=== PATIENT | female | born 1955 | race Caucasian/White ===

== ENCOUNTER 2024-04-28 22:02 | Emergency (ER) | payer OTHER, MEDICARE, SELFPAY ==
[2024-04-28 22:02] VITALS: BMI 27.6
[2024-04-28 22:08] VITALS: BP 163/102
--- NOTE | 2024-04-28 23:01 | ED.GENMED ---
History of Present Illness
<Kirk Jones MD, Resident - Last Filed: 04/28/24 23:34>
General
Chief Complaint: Allergic Reaction
Source: patient and family
Time Seen by Provider: 04/28/24 22:30
Travel History
Have you traveled to any high risk areas for coronavirus over the past 14 days?: No
Have you had any contact with someone who has COVID-19?: No
Do you have any symptoms of coronavirus? Fever > 100 degrees, chills, cough, shortness of breath, sore throat, loss of taste or smell, muscle aches, or headache?: No
History of Present Illness
History of Present Illness:
Madonna Reinoso, 69-year-old female, was stung by something while gardening this afternoon. Noted a bump at site of the sting a few minutes later with itching. Subsequently noted swelling and itching across her face, ears and neck. Her voice became
slightly raspy. No difficulty swallowing or breathing. No gastrointestinal or respiratory symptoms. Her symptoms remained stable since they came on. She has not taken anything for it. She has experienced something similar to this in the past when
she responded to Medrol-Dosepak and loratadine.
Past History
<Kirk Jones MD, Resident - Last Filed: 04/28/24 23:34>
Past History
ED Past Medical History: None
ED Past Surgical History: Other (hysterectomy)
Social History
Tobacco: Smoker
Alcohol: Occasional
Drug: None
Review of Systems
<Kirk Jones MD, Resident - Last Filed: 04/28/24 23:34>
Review of Systems
Allergies reviewed?: Yes
All Other Systems: ROS reviewed and negative except as documented in HPI and ROS
Skin: Reports itching and rash
Phy Exam
<Kirk Jones MD, Resident - Last Filed: 04/28/24 23:34>
General Physical Exam
General Presentation: well appearing and no apparent distress
General Skin: warm and dry
General Habitus: normal
General Mental: alert
General Hydration: appears well hydrated
ENT Exam
ENT Exam: EOMI, pharynx normal, neck supple and normocephalic
Eye Exam
Eye Exam: PERRL, cornea clear and conjunctiva normal
Cardiovascular Exam
Cardiovascular Exam: regular rate/rhythm, no edema, no murmur and normal peripheral pulses
Pulmonary Exam
Pulmonary Exam: lungs clear, no respiratory distress, no rales, no crackles, no rhonchi, no stridor, no wheezing and no cough
Gastrointestinal Exam
Gastrointestinal Exam: normal bowel sounds, non tender, soft, no organomegaly, no pulsatile mass and non distended
Neurological Exam
Neurological Exam: alert, oriented x3, no motor deficits and speech normal
Musculoskeletal Exam
Musculoskeletal Exam: full ROM and no edema
Skin Exam
Skin Exam: warm/dry, no petechia and other (mild erythema and mild edema over the face, ear and scalp)
Psychiatric Exam
Psychiatric Exam: normal mood/affect
Course
<Kirk Jones MD, Resident - Last Filed: 04/28/24 23:34>
Orders/Labs/Results
Orders:
Orders
04/28/24 22:54
Famotidine [Pepcid] 20 mg PO NOW STA
Prednisone [Deltasone] 50 mg PO NOW STA
04/28/24 23:08
Loratadine [Claritin] 10 mg PO NOW STA
Vital Signs
Initial and Last Documented VS:
Initial Vital Signs
Temp Pulse Resp BP Pulse Ox
98.2 F 84 18 163/102 97
04/28/24 22:08 04/28/24 22:08 04/28/24 22:08 04/28/24 22:08 04/28/24 22:08
Last Documented Vital Signs
Temp Pulse Resp BP Pulse Ox
98.2 F 84 18 163/102 98
04/28/24 22:08 04/28/24 22:08 04/28/24 22:08 04/28/24 22:08 04/28/24 22:50
<Becky Lizarraga DO - Last Filed: 04/28/24 23:37>
Orders/Labs/Results
Orders:
Orders
04/28/24 22:54
Famotidine [Pepcid] 20 mg PO NOW STA
Prednisone [Deltasone] 50 mg PO NOW STA
04/28/24 23:08
Loratadine [Claritin] 10 mg PO NOW STA
Vital Signs
Initial and Last Documented VS:
Initial Vital Signs
Temp Pulse Resp BP Pulse Ox
98.2 F 84 18 163/102 97
04/28/24 22:08 04/28/24 22:08 04/28/24 22:08 04/28/24 22:08 04/28/24 22:08
Last Documented Vital Signs
Temp Pulse Resp BP Pulse Ox
98.2 F 84 18 163/102 98
04/28/24 22:08 04/28/24 22:08 04/28/24 22:08 04/28/24 22:08 04/28/24 22:50
<Kirk Jones MD, Resident - Last Filed: 04/28/24 23:34>
MDM/Problems Addressed
MDM/Problems Addressed:
The patient is hemodynamically stable. No concerning signs of anaphylaxis. Patient refuses IV treatment. Will give oral medications and send some to pharmacy.
<Kirk Jones MD, Resident - Last Filed: 04/28/24 23:34>
*Critical Care Note
Total Time (30-74mins, 75-104mins- exclusive of procedures): Not Applicable
ED Attending Note
<Kirk Jones MD, Resident - Last Filed: 04/28/24 23:34>
-
Portions of this chart may have been created with voice recognition software.� Occasional wrong word or��sound alike� substitutions may have occurred due to the inherent limitations of voice recognition software.
<Becky Lizarraga DO - Last Filed: 04/28/24 23:37>
ED Attending Note
Patient seen and examined by attending physician: Yes
I performed a history and physical exam of patient and discussed management with resident, I reviewed resident's note and agree with documented findings and plan of care.: Yes
ED Attending Note:
69-year-old woman with no significant past medical history presents with complaints of abrupt focal itching and swelling to right frontal scalp while she was outdoors working in her yard she felt a bug bite and then shortly after developed local
swelling and itching right forehead that has progressed throughout the evening to some swelling and itching of her forehead, bilateral medial eyes. She admits to very mild fullness sensation of her throat but denies cough nor shortness of breath
nor difficulty swallowing. No abdominal pain, no nausea or vomiting.
She reports allergy to Benadryl but has taken Claritin in the past without adverse effects.
Similar previous allergic reactions treated with a Medrol Dosepak. She declines IV fluids and adamantly declines an IM dose of epinephrine.
Patient is bright and alert, pleasant, nontoxic in appearance. Speech is clear. No coughing or shortness of breath.
Exam remarkable for mild edema to forehead, bilateral medial orbital region as well as mild focal swelling right frontal scalp. No bite wound appreciated. No evidence of generalized allergic reaction, no urticaria.
Posterior pharynx with very minimal fullness of the uvula otherwise no angioedema. Posterior pharynx is clear. Oral mucosa is moist.
I have discussed my concerns regarding very minimal uvula fullness however patient overall is feeling well and continues to decline Benadryl as well as epinephrine.
She is agreeable to a dose of Claritin, prednisone and Pepcid and will provide a prescription for Medrol Dosepak and recommend she continue Claritin once daily at least over the next several days.
Recommend she elevate her head, apply cool compresses.
Strict return precautions discussed.
Discharge Plan
Departure
Patient Disposition: Home (Routine Discharge)
Date of Disposition: 04/28/24
Time of Disposition: 23:09
Patient with high blood pressure during this ER visit?: Yes
Condition: Good
Discharge Problem:
Acute allergic reaction
Instructions: Allergic Reaction ED
Prescriptions:
New
prednisone 10 mg Tablet
See Rx Instructions .ROUTE .COMPLEX Qty: 30 0RF
Rx Instructions:
Take By Mouth:
40 mg daily x3 days, 30 mg daily x3 days,
20 mg daily x3 days, 10 mg daily x3 days.
Interventions
Interventions:
*Risk Screen - Suicide Last Done: 04/28/24 22:08
*General Assessment Last Done: 04/28/24 22:08
*Neglect/Abuse Screening Last Done: 04/28/24 22:08
ED- Cardiac Assessment Last Done: 04/28/24 22:50
ED- Pulmonary Assessment Last Done: 04/28/24 22:50
ED-Skin Assessment Last Done: 04/28/24 22:50
Discharge Date and Time
Print Language: GREENLAND[place]
[2024-04-28] MEDS: DELTASONE 50 MG PO (23:21)
[2024-04-28] MEDS: CLARITIN 10 MG PO (23:21)
[2024-04-28] MEDS: PEPCID 20 MG PO (23:21)
[2024-04-28 23:53] VITALS: BP 180/94
== END 2024-04-28 23:54 | disposition home or self-care (01) ==
LOC: EMR 22:02
PROVIDERS: EMERGENCY PHYSICIAN Emergency Medicine; FAMILY PHYSICIAN Family Medicine
DX: T78.40XA Allergy, unspecified, initial encounter (principal); R22.0 Localized swelling, mass and lump, head; L53.9 Erythematous condition, unspecified; L29.9 Pruritus, unspecified; W57.XXXA Bitten or stung by nonvenomous insect and other nonvenomous arthropods, initial encounter; Y93.H2 Activity, gardening and landscaping; Y92.007 Garden or yard of unspecified non-institutional (private) residence as the place of occurrence of the external cause; R03.0 Elevated blood-pressure reading, without diagnosis of hypertension; F17.200 Nicotine dependence, unspecified, uncomplicated; Z88.8 Allergy status to other drugs, medicaments and biological substances; Z88.0 Allergy status to penicillin; Z88.2 Allergy status to sulfonamides; Z91.040 Latex allergy status
CPT/HCPCS: 99283